=== PATIENT | female | born 1945 | race Caucasian/White ===

== ENCOUNTER 2023-05-02 11:05 | Outpatient (OUT) | payer MEDICARE, OTHER, SELFPAY ==
--- NOTE | 2023-05-02 11:33 | XR_ITS ---
The [address] [address] Patient Name: LIONEL Damon COVERT MRN: [id number] date: 1945 Sex: F Assigned Patient Location: RAD Current Patient Location: RAD Accession/Order Number: [id number] Exam Date: 05/02/2023 11:25 Report Date: 05/02/2023 14:32 At the request of: JACKIE MOSHER Procedure: XR chest 2V EXAM: XR chest 2V HISTORY: bronchitis [id number] COMPARISON: None. TECHNIQUE: PA and lateral views of the chest. FINDINGS: The cardiomediastinal silhouette is normal. Stranding opacity of the left lower lobe. There is no pneumothorax. No pleural effusion is noted. The osseous structures are intact. XR/XR chest 2V IMPRESSION: Left lower lobe atelectasis or pneumonia. Electronically authenticated by: ELYSIA ANDERSON Date: 05/02/2023 14:32
== END 2023-05-02 11:06 | disposition home or self-care (01) ==
LOC: RAD 11:12
PROVIDERS: Family Provider Internal Medicine; Visit Provider Internal Medicine
DX: J47.9 Bronchiectasis, uncomplicated (principal)
CPT/HCPCS: 71046